=== PATIENT | male | born 1985 | race Caucasian/White ===

== ENCOUNTER 2019-07-24 18:23 | Emergency (ER) | payer SELFPAY ==
[~2019-07-24] VITALS: Ht 172.7 cm; Wt 122.5 kg
[~2019-07-24 18:23] MED LIST: NKM
[2019-07-24] MEDS ORDERED: CYCLOBENZAPRINE HCL 10 MG TAB PO ONE (20:15)
[2019-07-24] MEDS ORDERED: IBUPROFEN 400 MG TAB PO ONE (20:15)
[2019-07-24 20:26] LABS: CLARITY,URINE SL CLOUDY (CLEAR); COLOR,URINE YELLOW (YELLOW); LEUKOCYTE ESTERASE ,URINE NEGATIVE (NEGATIVE); NITRITE,URINE NEGATIVE (NEGATIVE); PROTEIN,URINE DIPSTICK NEGATIVE (NEGATIVE)
[2019-07-24 20:27] LABS: BILIRUBIN,URINE NEGATIVE (NEGATIVE); KETONES,URINE NEGATIVE (NEGATIVE); URINE UROBILINOGEN 0.2 mg/dL (0.2 - 1)
[2019-07-24 20:36] LABS: BACTERIA,URINE FEW /HPF; EPITHELIAL CELLS,URINE FEW /LPF; MUCUS,URINE MANY (RARE)
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
[2019-07-24 21:56] VITALS: BP 150/73
== END 2019-07-24 22:02 | disposition home or self-care (01) ==
LOC: ER 18:23
DX: S20.311A Abrasion of right front wall of thorax, initial encounter (principal); S50.811A Abrasion of right forearm, initial encounter; S80.812A Abrasion, left lower leg, initial encounter; S80.811A Abrasion, right lower leg, initial encounter; V43.52XA Car driver injured in collision with other type car in traffic accident, initial encounter; Y92.488 Other paved roadways as the place of occurrence of the external cause
CPT/HCPCS: 71046; 81001; 99282